=== PATIENT | female | born 1980 | race American Indian/Alaskan Native ===

== ENCOUNTER 2021-11-27 00:23 | Emergency (ER) | payer OTHER, MEDICAID ==
[2021-11-27 01:34] VITALS: BP 113/83
[2021-11-27] MEDS ORDERED: IBUPROFEN 600 MG TAB PO ONE (01:49)
[2021-11-27] MEDS ORDERED: ACETAMINOPHEN 500 MG TAB PO ONE (01:49)
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
== END 2021-11-27 03:53 | disposition home or self-care (01) ==
LOC: ED 00:23
DX: S00.83XA Contusion of other part of head, initial encounter (principal); T14.8XXA Other injury of unspecified body region, initial encounter; V89.2XXA Person injured in unspecified motor-vehicle accident, traffic, initial encounter; Y93.89 Activity, other specified; Y92.89 Other specified places as the place of occurrence of the external cause; Y99.8 Other external cause status
CPT/HCPCS: 99282